=== PATIENT | female | born 1965 | race Caucasian/White ===

== ENCOUNTER 2017-03-25 13:00 | Inpatient (IN) | payer OTHER ==
[~2017-03-25] VITALS: Ht 167.6 cm; Wt 92.3 kg
[~2017-03-25 13:00] MED LIST: MECL-62 PO; OYST500T77 PO; VITA400D PO
[2017-03-28] MEDS ORDERED: METH5TAB4 PO (10:20)
[2017-04-04] MEDS ORDERED: ceFAZolin 2 GM PREMIX 50 ML IV SCH (06:45)
[2017-04-04] MEDS ORDERED: POVIDONE IODINE 5% (ANTISEPSIS KIT) 4 APPLICATIONS EACH NARE PRN (06:45)
[2017-04-04] MEDS ORDERED: LACTATED RINGER'S 1000 ML IV PRN (06:45)
[2017-04-04] MEDS ORDERED: METRONIDAZOLE 500 MG/100 ML ISONTONIC SOLN IV SCH (06:45)
[2017-04-04] MEDS ORDERED: METOPROLOL TARTRATE 25 MG TAB PO PRN (06:45)
[2017-04-04] MEDS ORDERED: INSULIN HUMAN REGULAR 1,000 UNITS/10 ML VIAL SQ PRN (06:45)
[2017-04-04] MEDS ORDERED: SODIUM CHLORID 0.9% 500 ML IV PRN (06:45)
[2017-04-04] MEDS ORDERED: CHLORHEXIDINE GLUCONATE 2 % 1 PACK (2 CLOTHS) TOPICAL PRN (06:45)
[2017-04-04] MEDS ORDERED: VITA1000 PO (06:59)
[2017-04-04] MEDS ORDERED: CALC500T37 PO (06:59)
[2017-04-04] MEDS ORDERED: tumeric (06:59)
[2017-04-04] MEDS ORDERED: GING500C2 (06:59)
--- NOTE | 2017-04-04 07:53 | PD.HP.UP ---
H&P Update Note The Pre-Admit History and Physical Examination regarding the above named patient was reviewed (including, but not limited to, vital signs, heart, lungs, co-morbid conditions), and upon re-examination it is noted that: the patient's condition has not significantly changed since the last examination. Selena St MD Apr 04, 2017 07:53
[2017-04-04] MEDS ORDERED: FAMOTIDINE 20 MG/2 ML VIAL ONE (08:02)
[2017-04-04] MEDS ORDERED: MIDAZOLAM HCL 2 MG/2 ML VIAL ONE (08:02)
[2017-04-04] MEDS ORDERED: ACETAMINOPHEN 1000 MG/100 ML 100 ML IV ONE (08:02)
--- NOTE | 2017-04-04 09:45 | PD.OP ---
Operative Report Date of Surgery: Apr 04, 2017 Preoperative Diagnosis: (1) Cancer of sigmoid colon Postoperative Diagnosis: (1) Cancer of sigmoid colon Procedure: Urologic procedures: Cystoscopy and placement of bilateral ureteral catheters Anesthesia: General Surgeon: Matt Donohue Mainframe Developer(s): None Operation and Findings: Urologic surgery indication for procedure: Consult intraoperatively to pass bilateral ureteral catheters to aid in visualization of this patient's ureters during her colorectal procedure. Urologic surgery procedures in detail: Concurrent with the colorectal surgeon, I proceeded with cystoscopy and placement of bilateral ureteral catheters as follows: Initially cystoscopic evaluation was performed utilizing the rigid cystoscope with a 22 Stateless sheath and the 30 lens. Both right and left ureteral orifices were in correct anatomic position effluxing clear yellow urine. There were no bladder mucosal lesions, calculi or diverticula formation. There were no areas suspicious for fistula formation. I next proceeded with passing a sensor 0.035 wire up the patient's left ureter until a small amount of resistance was met. I then passed a 6 Stateless open-ended catheter over the wire 25 cm in a cephalad direction. With the catheter in place the wire was withdrawn and reintroduced through secondary site via the cystoscope and in similar fashion the contralateral side was accomplished. With both catheters in place the cystoscope and wire were withdrawn and a 16 Stateless 10 cc Aguilar catheter was placed. Both ureteral catheters were next anchored to the Aguilar via a connector and all 3 catheters placed to gravity drainage. This completes urologic surgery portion of combined procedures on this patient. Matt Donohue MD Apr 04, 2017 09:45
[2017-04-04] MEDS ORDERED: SUGAMMADEX SODIUM 200 MG/2 ML VIAL IV PUSH ONE ×2 (09:51)
[2017-04-04] MEDS ORDERED: HYDROmorphone HCL PF 2 MG/ML VIAL ONE (10:15)
[2017-04-04] MEDS ORDERED: PROPOFOL 200 MG/20 ML AMP IV ONE (12:00)
[2017-04-04] MEDS ORDERED: VECURONIUM BROMIDE 10 MG VIAL IV ONE (12:00)
[2017-04-04] MEDS ORDERED: NORMOSOL R INJ 2,000 ML IV ONE (12:00)
[2017-04-04] MEDS ORDERED: ONDANSETRON HCL 4 MG/2 ML VIAL IV PUSH ONE (12:00)
[2017-04-04] MEDS ORDERED: Post-op Orders (for Pharmacy) MISC XX ONE (12:30)
[2017-04-04] MEDS ORDERED: ONDANSETRON HCL 4 MG/2 ML VIAL IV PRN (12:30)
[2017-04-04] MEDS ORDERED: POTASSIUM CHLOR 40 MEQ PREMIX 100 ML IV PRN (12:30)
[2017-04-04] MEDS ORDERED: ENALAPRILAT 2.5 MG/2 ML VIAL IV PRN (12:30)
[2017-04-04] MEDS ORDERED: NALOXONE HCL 0.4 MG/ML AMP IV PRN (12:30)
[2017-04-04] MEDS ORDERED: BENZOCAINE 6 MG/MENTHOL 10 MG LOZENGE BUCCAL PRN (12:30)
[2017-04-04] MEDS ORDERED: POTASSIUM CHLOR 20 MEQ PREMIX 100 ML IV PRN (12:30)
[2017-04-04] MEDS ORDERED: ACETAMINOPHEN 325 MG TAB PO PRN (12:30)
[2017-04-04] MEDS ORDERED: SODIUM CHLORIDE 0.9% FLUSH 5 ML FLUSH IVF PRN (12:30)
[2017-04-04] MEDS ORDERED: diphenhydrAMINE HCL 50 MG/ML VIAL IV PRN (12:30)
[2017-04-04] MEDS ORDERED: ENALAPRILAT 1.25 MG/ML VIAL IV PRN (12:30)
[2017-04-04] MEDS ORDERED: ACETAMINOPHEN/HYDROcodone 325 MG/5 MG TAB PO PRN ×2 (12:30)
[2017-04-04] MEDS: D5-NS + KCL 20 MEQ INJ 1,000 ML IV SCH ×2 (12:57→22:03)
[2017-04-04] MEDS ORDERED: DO NOT ADM ANY ANTICOAGULANT DRUGS PRN (12:57)
[2017-04-04 13:50] LABS: AUTOMATED NEUTROPHIL # 11.2 TH/MM3 (1.8-7.7); BASOPHIL % 0.2 % (0.0-2.0); EOSINOPHIL % 0.1 % (0.0-4.0); HEMATOCRIT 39.2 % (35.0-46.0); HEMO FLAGS DIFF FINAL; LYMPH % 5.4 % (9.0-44.0); LYMPHOCYTE # 0.7 TH/MM3 (1.0-4.8); MEAN CELL VOLUME 89.6 FL (80.0-100.0); MEAN CORPUSCULAR HEMOGLOBIN 29.2 PG (27.0-34.0); MEAN CORPUSCULAR HGB CONC 32.6 % (32.0-36.0); MONO % 1.5 % (0.0-8.0); NEUT % 92.8 % (16.0-70.0); PLATELET COUNT 250 TH/MM3 (150-450); RED BLOOD COUNT 4.37 MIL/MM3 (4.00-5.30); RED CELL DISTRIBUTION WIDTH 13.8 % (11.6-17.2); WHITE BLOOD COUNT 12.1 TH/MM3 (4.0-11.0)
[2017-04-04 14:10] LABS: BICARBONATE 25.4 MEQ/L (21.0-32.0); POTASSIUM 3.2 MEQ/L (3.5-5.1)
[2017-04-04] MEDS: MORPHINE SULFATE 30 MG/30 ML PCA IV SCH ×2 (14:14→22:02)
[2017-04-04] MEDS: metroNIDAZOLE 500 MG INJ 100 ML IV SCH (17:00)
[2017-04-04 18:49] VITALS: BP 120/64; PULSE 80; RESP 16; TEMP 98
[2017-04-04 19:00] VITALS: PULSE 85
[2017-04-04] MEDS: DEXT 5%-NACL 0.9% 1000 ML INJ 1,000 ML IV SCH (19:38)
[2017-04-04 20:00] VITALS: BP 120/66; PULSE 76; RESP 16; TEMP 99.4; O2SAT 95
[2017-04-04 20:26] VITALS: O2SAT 100; O2SAT 96
[2017-04-04] MEDS: SODIUM CHLORIDE 0.9% FLUSH 5 ML FLUSH IVF SCH (21:00)
[2017-04-04] MEDS: PCA - TOTAL MG MORPHINE DELIVERED PER SHIFT SCH (22:00)
[2017-04-04] MEDS: KETOROLAC TROMETHAMINE 30 MG/ML (IVP) VIAL IVP SCH (22:02)
[2017-04-04 23:00] VITALS: BP 126/68; PULSE 76; PULSE 79; RESP 16; TEMP 98.7; O2SAT 98
[2017-04-05] VITALS (19 sets, daily range): BP systolic 115–121; BP diastolic 63–75; PULSE 70–98; RESP 16–20; TEMP 98.2–99.7; O2SAT 97–99
[2017-04-05] MEDS: D5-NS + KCL 20 MEQ INJ 1,000 ML IV SCH ×3 (01:49→14:55)
[2017-04-05] MEDS: DEXT 5%-NACL 0.9% 1000 ML INJ 1,000 ML IV SCH (03:15)
[2017-04-05] MEDS: PCA - TOTAL MG MORPHINE DELIVERED PER SHIFT SCH ×4 (03:17→22:00)
[2017-04-05] MEDS: KETOROLAC TROMETHAMINE 30 MG/ML (IVP) VIAL IVP SCH ×4 (03:18→21:04)
[2017-04-05] MEDS: metroNIDAZOLE 500 MG INJ 100 ML IV SCH ×2 (03:22→08:35)
[2017-04-05 05:43] LABS: AUTOMATED NEUTROPHIL # 8.6 TH/MM3 (1.8-7.7); BASOPHIL % 0.3 % (0.0-2.0); HEMATOCRIT 37.3 % (35.0-46.0); HEMO FLAGS DIFF FINAL; LYMPH % 8.7 % (9.0-44.0); LYMPHOCYTE # 0.9 TH/MM3 (1.0-4.8); MEAN CELL VOLUME 91.2 FL (80.0-100.0); MEAN CORPUSCULAR HEMOGLOBIN 29.7 PG (27.0-34.0); MEAN CORPUSCULAR HGB CONC 32.6 % (32.0-36.0); MONO % 9.8 % (0.0-8.0); NEUT % 81.2 % (16.0-70.0); PLATELET COUNT 257 TH/MM3 (150-450); RED BLOOD COUNT 4.09 MIL/MM3 (4.00-5.30); RED CELL DISTRIBUTION WIDTH 13.8 % (11.6-17.2); WHITE BLOOD COUNT 10.5 TH/MM3 (4.0-11.0)
[2017-04-05 06:07] LABS: BICARBONATE 23.9 MEQ/L (21.0-32.0); POTASSIUM 3.9 MEQ/L (3.5-5.1)
[2017-04-05] MEDS: MORPHINE SULFATE 30 MG/30 ML PCA IV SCH (08:36)
[2017-04-05] MEDS: METHIMAZOLE 5 MG TAB PO SCH (08:39)
[2017-04-05] MEDS: PANTOPRAZOLE SODIUM 40 MG VIAL IVP SCH (08:40)
[2017-04-05] MEDS: SODIUM CHLORIDE 0.9% FLUSH 5 ML FLUSH IVF SCH ×2 (08:41→21:00)
[2017-04-05] MEDS: HEPARIN SODIUM - SQ 10,000 UNITS/ML VIAL SQ SCH (11:52)
--- NOTE | 2017-04-05 15:16 | HHI.PR ---
Subjective Remarks POD#1 s/p LAR Comfortable, no nausea Objective Vital Signs Date Time Temp Pulse Resp B/P (MAP) Pulse Ox O2 Delivery O2 Flow Rate FiO2 04/05/17 14:00 95 04/05/17 13:00 90 04/05/17 12:00 85 04/05/17 11:00 70 04/05/17 11:00 98.2 95 20 115/63 (80) 99 04/05/17 10:00 88 04/05/17 09:00 86 04/05/17 08:36 20 04/05/17 08:00 70 04/05/17 07:48 98.9 70 20 117/75 (89) 98 04/05/17 07:00 70 04/05/17 06:00 98.6 76 16 121/70 (87) 99 04/05/17 03:17 12 04/05/17 03:00 75 04/04/17 23:00 76 04/04/17 23:00 98.7 79 16 126/68 (87) 98 04/04/17 22:07 12 04/04/17 22:02 12 04/04/17 22:00 16 04/04/17 20:26 96 Nasal Cannula 2.00 04/04/17 20:00 99.4 76 16 120/66 (84) 95 04/04/17 19:00 85 04/04/17 18:49 98.0 80 16 120/64 (82) 04/04/17 15:45 98.0 84 20 129/69 (89) 100 Nasal Cannula 2 I/O 04/04/17 04/04/17 04/04/17 04/05/17 04/05/17 04/05/17 07:00 15:00 23:00 07:00 15:00 23:00 Intake Total 2400 ml 2240 ml Output Total 450 ml 425 ml Balance 1950 ml 1815 ml Intake Oral 240 ml IV Total 2000 ml Other 2400 ml Output Urine Total 400 ml 425 ml Estimated Blood Loss 50 ml Result Diagram: 04/05/17 0450 04/05/17 0450 Objective Remarks Abdomen soft, nondistended, tender Dressings c/d/i Assessment and Plan Assessment and Plan D/C tele D/C stent Decrease IVF Advance diet Selena St MD Apr 05, 2017 15:16
[2017-04-06] VITALS (7 sets, daily range): BP systolic 118–144; BP diastolic 59–82; PULSE 85–93; RESP 16–20; TEMP 97.8–100.4; O2SAT 94–100
[2017-04-06] MEDS: KETOROLAC TROMETHAMINE 30 MG/ML (IVP) VIAL IVP SCH ×4 (02:00→21:21)
[2017-04-06] MEDS: MORPHINE SULFATE 30 MG/30 ML PCA IV SCH (05:40)
[2017-04-06] MEDS: D5-NS + KCL 20 MEQ INJ 1,000 ML IV SCH (05:44)
[2017-04-06] MEDS: PCA - TOTAL MG MORPHINE DELIVERED PER SHIFT SCH (06:00)
[2017-04-06 08:00] LABS: AUTOMATED NEUTROPHIL # 5.9 TH/MM3 (1.8-7.7); BASOPHIL # 0.1 TH/MM3 (0-0.2); BASOPHIL % 0.7 % (0.0-2.0); EOSINOPHIL # 0.1 TH/MM3 (0-0.4); EOSINOPHIL % 1.5 % (0.0-4.0); HEMATOCRIT 31.5 % (35.0-46.0); HEMO FLAGS DIFF FINAL; LYMPH % 13.1 % (9.0-44.0); MEAN CELL VOLUME 91.6 FL (80.0-100.0); MEAN CORPUSCULAR HEMOGLOBIN 31.2 PG (27.0-34.0); MONO % 8.6 % (0.0-8.0); NEUT % 76.1 % (16.0-70.0); PLATELET COUNT 203 TH/MM3 (150-450); RED BLOOD COUNT 3.43 MIL/MM3 (4.00-5.30); RED CELL DISTRIBUTION WIDTH 13.9 % (11.6-17.2); WHITE BLOOD COUNT 7.8 TH/MM3 (4.0-11.0)
[2017-04-06] MEDS: METHIMAZOLE 5 MG TAB PO SCH (08:13)
[2017-04-06] MEDS: PANTOPRAZOLE SODIUM 40 MG VIAL IVP SCH (08:13)
[2017-04-06] MEDS: SODIUM CHLORIDE 0.9% FLUSH 5 ML FLUSH IVF SCH ×2 (08:14→21:00)
[2017-04-06 08:33] LABS: BICARBONATE 25.5 MEQ/L (21.0-32.0); POTASSIUM 3.5 MEQ/L (3.5-5.1)
--- NOTE | 2017-04-06 12:21 | HHI.PR ---
Subjective Remarks POD#2 s/p LAR Comfortable Objective Vital Signs Date Time Temp Pulse Resp B/P (MAP) Pulse Ox O2 Delivery O2 Flow Rate FiO2 04/06/17 09:59 96 Nasal Cannula 2.00 04/06/17 07:00 99.8 93 18 139/73 (95) 94 04/06/17 06:00 18 04/06/17 05:40 18 04/06/17 04:00 99.1 89 16 129/73 (91) 98 04/06/17 00:00 98.7 85 16 118/59 (78) 98 04/05/17 22:00 95 04/05/17 22:00 18 04/05/17 21:00 95 04/05/17 20:00 99.7 82 18 118/65 (82) 97 04/05/17 20:00 98 04/05/17 19:00 82 04/05/17 18:00 80 04/05/17 17:00 98 04/05/17 16:00 88 04/05/17 15:00 98.4 88 20 118/68 (85) 99 04/05/17 15:00 80 04/05/17 14:00 95 04/05/17 14:00 20 04/05/17 13:00 90 I/O 04/05/17 04/05/17 04/05/17 04/06/17 04/06/17 04/06/17 07:00 15:00 23:00 07:00 15:00 23:00 Intake Total 2240 ml 1980 ml 1140 ml Output Total 425 ml 700 ml 1250 ml Balance 1815 ml 1280 ml -110 ml Intake Oral 240 ml 580 ml 420 ml IV Total 2000 ml 1400 ml 720 ml Output Urine Total 425 ml 700 ml 1250 ml Result Diagram: 04/06/17 0708 04/06/17 0708 Objective Remarks Abdomen soft, nondistended, tender Wounds clean Assessment and Plan Assessment and Plan Decrease IVF Advance diet D/C LOSS PREVENTION DETECTIVE Transfer to N Selena [address] MD Apr 06, 2017 12:21
--- NOTE | 2017-04-06 12:42 | MP ---
cc: ALYSSA EDMONDS M.D. JOHANA BAI HARSH, V. M.D. DATE OF SURGERY: 04/04/2017. PREOPERATIVE DIAGNOSIS: Rectosigmoid colon cancer. POSTOPERATIVE DIAGNOSIS: Rectosigmoid colon cancer. OPERATIVE PROCEDURE PERFORMED: Robotic low anterior resection. SURGEON: Alyssa Edmonds M.D. HEADER SETUP OPERATOR: Rodger. ANESTHESIA: General per ET tube ESTIMATED BLOOD LOSS: 50 mL OPERATIVE INDICATIONS: The patient is a 51-year-old female who on recent colonoscopy was noted to have a cancer at the rectosigmoid junction. OPERATIVE FINDINGS: The liver was visibly normal as were the uterus and the ovaries. The patient had a small tumor at the rectosigmoid junction, but no other visible abnormalities noted within the bowel. DESCRIPTION OF THE PROCEDURE IN DETAIL: The patient was brought to the operating room and placed in the supine position. After induction of general anesthesia the patient was placed in Kevin stirrups and all bony prominences were carefully padded. Dr. Donohue then came in and performed cystoscopy with placement of bilateral ureteral catheters, please see his operative note for details. A site was then chosen for the camera, being located 2 cm above and to the right of the umbilicus. A 10/12 trocar was placed at this location, under direct vision using a laparoscope. CO2 insufflation was then undertaken and a brief abdominal survey was performed, with nothing noted that would preclude the operative approach. The remainder of the ports were then placed as follows: The #1 10/12 port was placed just inside the anterior superior iliac spine. The assist port, #5, was placed just under the right costal margin, equidistant between the #1 and the camera port. The #3 port,an 8 da Catracho, was placed on the umbilical line in the left anterior axillary line. After evaluating and finding that she had plenty of length of descending colon, the #2 port was placed in the left midclavicular line two fingerbreadths above the umbilicus. The patient was hydroplaned with head down and slightly to the right, and the small bowel was brought up and to the right. The patient was noted to have quite a bit of redundant descending and sigmoid colon. This was pulled up and the area of the tumor was fairly well visualized. The uterus and ovaries appeared to be normal. The liver was visualized to the extent possible and no significant abnormalities were noted. The sigmoid colon was retracted to the left and the peritoneum on the right was scored. Dissection continued in this plane posterior to the vessels until the left ureter was clearly identified and swept away from the vessels. The vessels were then dissected up to their takeoff from the aorta. These were dissected free. The artery and vein were dissected free circumferentially, doubly clamped proximally and distally, divided and ligated using Hem-o-lock clamps. Dissection then continued laterally to the level of the lateral sidewall and dissection then continued in the pelvis posteriorly down to the level of the distal rectum. Dissection then continued up and around the right side, freeing the rectum down to the level of the mid rectum on the lateral side. The rectosigmoid was then retracted to the right and the lateral peritoneal attachments of the sigmoid were then dissected free using electrocautery. This was continued up onto the distal descending colon and then dissection continued on the left side of the rectum, freeing down to the mid rectum as well. A sponge stick was then placed into the rectum, and a site was chosen for division of the rectum, just below the peritoneal reflection. The bowel was sized and I felt the 33 EEA stapler was appropriate. This was brought onto the field and placed through the anus and up to the rectal stump and came up nicely without difficulty. The peritoneal reflection was then divided using electrocautery and the rectal mesentery was divided using the harmonic scalpel. A white load of the [place] Endostapler was brought onto the field and placed across the bowel at this level. This was closed, held for 30 seconds, fired and removed. The 33 EEA stapler was again advanced through the rectal stump and through the anus and up to the rectal stump without difficulty. It lay in a nice orientation. There were a few small areas of fibrofatty tissue which were cleared off. The rest of bowel was then examined. It was felt that the we had plenty of length to come down nicely into the pelvis. Dissection beds were examined and there were some small areas of oozing that were controlled with electrocautery. The robot was then undocked. A 6 to 8 cm incision was made in the suprapubic area and,, using electrocautey, dissection was carried down to the fascia of the anterior abdominal wall which was split the length of the skin incision. The medial fibers of the rectus abdominis muscle were then divided using electrocautery, and the posterior fascia/peritoneum was then divided the length of the skin incision as well. A wound protector was placed, and the proximal stapled end of the bowel was then grasped and pulled up and out through the incision. A site was then chosen for division of the bowel, where it came down nicely to the pubic tubercle. The mesentery at this level was serially divided and ligated using #0 Vicryl ties, and a pursestring stapling device was placed across the bowel at this level. The distal bowel was occluded with Alan clamps and it was then amputated and taken to the back table where the tumor was easily visualized and we had a nice 8 cm distal margin. The anvil was then placed into the cut end of the bowel and the previously placed pursestring suture was then secured. However, on evaluation there were two fairly large diverticula that really did not quite come down nicely to make a good anastomosis so I did elect to dissect back an additional 1-2 cm. The mesentery was dissected back using electrocautery, and a reload of the pursestring stapling was placed across the bowel. The intervening bowel was then amputated and discarded. The anvil was placed again into the cut end of the bowel and the pursestring suture was secured. It lay in a better orientation. One member of the team then went performed the perineal portion of the procedure. After gentle digital dilatation of the anus, the stapler was advanced through the anus and up to the rectal stump. The spike was advanced just anterior to the staple line. The anvil was into the spike, being careful that the bowel was not twisted. The stapler was then closed, held for 30 seconds, fired, and removed, thus creating an enteroenterotomy. The resulting enterotomy was pink and healthy circumferentially and lay in a nice orientation without tension. Both anastomotic rings were complete. A small amount of warm normal saline was placed into the pelvis and air was insufflated to the extent possible, with digital occlusion of the proximal bowel. Gentle tension was noted on the anastomosis with no sign of any leakage noted. All dissection beds were again examined with no significant bleeding. A small amount or [place] however was dusted into the pelvis. The posterior fascia at the suprapubic incision was closed in a running fashion using #1 PDS and the anterior fascia of the suprapubic incision was closed in a running fashion using #1 PDS. An OpSite was placed over the wound and CO2 insufflation was again resumed. There was no sign of any significant bleeding. The 10/12 trocar sites at the umbilicus and the right lower quadrant were then closed using the crossbow suture device and 0 Vicryl suture, but not secured. The air was desufflated to the extent possible. These sutures were then secured. All wounds were copiously irrigated with warm normal saline. The skin at the suprapubic incision was closed in a running fashion using 3-0 Vicryl and the skin of the trocar sites was closed in an interrupted subcuticular fashion using 3-0 Vicryl. The right ureteral catheter was then removed. All sponge, needle and instrument counts were correct and the patient was returned to the post anesthesia care in stable condition. MD PATRICK Vázquez/DANNY /12:30 PM /12:18 PM MTDJerrica
[2017-04-06] MEDS: HEPARIN SODIUM - SQ 10,000 UNITS/ML VIAL SQ SCH ×2 (12:55)
[2017-04-07] VITALS: BP 144/78; PULSE 88; RESP 20; TEMP 99.6; O2SAT 100
[2017-04-07] MEDS: HEPARIN SODIUM - SQ 10,000 UNITS/ML VIAL SQ SCH ×2 (00:35→11:27)
[2017-04-07 04:00] VITALS: BP 137/75; PULSE 68; RESP 20; TEMP 98.7; O2SAT 98
[2017-04-07] MEDS: KETOROLAC TROMETHAMINE 30 MG/ML (IVP) VIAL IVP SCH ×2 (04:58→08:56)
[2017-04-07 07:33] VITALS: BP 127/77; PULSE 73; RESP 18; TEMP 97.8; O2SAT 96
[2017-04-07] MEDS: D5-NS + KCL 20 MEQ INJ 1,000 ML IV SCH (08:55)
[2017-04-07] MEDS: METHIMAZOLE 5 MG TAB PO SCH (08:55)
[2017-04-07] MEDS: SODIUM CHLORIDE 0.9% FLUSH 5 ML FLUSH IVF SCH (08:56)
[2017-04-07] MEDS: PANTOPRAZOLE SODIUM 40 MG VIAL IVP SCH (08:57)
[2017-04-07 09:07] LABS: AUTOMATED NEUTROPHIL # 3.7 TH/MM3 (1.8-7.7); BASOPHIL # 0.1 TH/MM3 (0-0.2); BASOPHIL % 1.2 % (0.0-2.0); EOSINOPHIL # 0.2 TH/MM3 (0-0.4); EOSINOPHIL % 3.8 % (0.0-4.0); HEMATOCRIT 31.2 % (35.0-46.0); HEMO FLAGS DIFF FINAL; LYMPH % 24.7 % (9.0-44.0); LYMPHOCYTE # 1.5 TH/MM3 (1.0-4.8); MEAN CELL VOLUME 90.3 FL (80.0-100.0); MEAN CORPUSCULAR HEMOGLOBIN 31.1 PG (27.0-34.0); MEAN CORPUSCULAR HGB CONC 34.4 % (32.0-36.0); MONO % 9.2 % (0.0-8.0); NEUT % 61.1 % (16.0-70.0); PLATELET COUNT 195 TH/MM3 (150-450); RED BLOOD COUNT 3.45 MIL/MM3 (4.00-5.30); RED CELL DISTRIBUTION WIDTH 13.7 % (11.6-17.2)
[2017-04-07 09:36] LABS: POTASSIUM 3.1 MEQ/L (3.5-5.1)
[2017-04-07 11:00] VITALS: BP 126/68; PULSE 60; RESP 20; TEMP 98.8; O2SAT 98
--- NOTE | 2017-04-07 12:49 | HHI.PR ---
Subjective Remarks POD#3 s/p LAR Comfortable, ready to go home Objective Vital Signs Date Time Temp Pulse Resp B/P (MAP) Pulse Ox O2 Delivery O2 Flow Rate FiO2 04/07/17 07:33 97.8 73 18 127/77 (94) 96 04/07/17 04:00 98.7 68 20 137/75 (95) 98 04/07/17 00:00 99.6 88 20 144/78 (100) 100 04/06/17 20:00 100.4 86 20 144/82 (102) 100 04/06/17 15:00 97.8 87 18 124/68 (86) 97 04/06/17 14:38 18 04/06/17 14:38 18 I/O 04/06/17 04/06/17 04/06/17 04/07/17 04/07/17 04/07/17 06:59 14:59 22:59 06:59 14:59 22:59 Intake Total 1140 ml 1086 ml 240 ml Output Total 1250 ml 1700 ml 1200 ml Balance -110 ml -614 ml -960 ml Intake Oral 420 ml 240 ml IV Total 720 ml 1086 ml Output Urine Total 1250 ml 1700 ml 1200 ml Result Diagram: 04/07/17 0757 04/07/17 0757 Objective Remarks Abdomen soft, nondistended, tender Wounds clean Assessment and Plan Assessment and Plan Home today Followup [address] MD Apr 07, 2017 12:49
[2017-04-07] MEDS ORDERED: HYDR-3516 PO (12:51)
--- NOTE | 2017-04-29 22:42 | MD ---
cc: SELENA ST M.D. ADMISSION DATE: 04/04/2017 DISCHARGE DATE: 04/07/2017 ADMISSION DIAGNOSIS Rectosigmoid colon cancer. DISCHARGE DIAGNOSIS Rectosigmoid colon cancer. PROCEDURE 1. Cystoscopy with placement of bilateral ureteral catheters. 2. Robotic low anterior resection. HOSPITAL COURSE The patient is a 51-year-old female who on recent colonoscopy was noted to have a cancer of the rectosigmoid junction. She was admitted to the hospital on April 04, 2017, after an outpatient bowel prep. She was taken to the operating where she underwent the above-named procedures. Postoperatively, she did well with rapid return of bowel and bladder function. At the time of discharge final pathology was not available. Selena St MD KW/GABE /5:27 PM /10:31 PM NICA
== END 2017-04-07 15:00 | disposition home or self-care (01) | DRG 331 ==
LOC: HSDI 04-04 06:19 → EDSTATUS 04-04 08:30 → HCIS 04-04 15:40
PROVIDERS: ADMIT Colon & Rectal Surgery; ATTEND Colon & Rectal Surgery
PROC: 8E0W4CZ Robotic Assisted Procedure of Trunk Region, Percutaneous Endoscopic Approach (ICD-10-PCS; 2017-04-04)
PROC: 0T9880Z Drainage of Bilateral Ureters with Drainage Device, Via Natural or Artificial Opening Endoscopic (ICD-10-PCS; 2017-04-04)
PROC: 0DTN0ZZ Resection of Sigmoid Colon, Open Approach (ICD-10-PCS; principal; 2017-04-04 08:38)
PROC: 0DBP4ZZ Excision of Rectum, Percutaneous Endoscopic Approach (ICD-10-PCS; 2017-04-04 08:38)
DX: C19 Malignant neoplasm of rectosigmoid junction (principal); E05.90 Thyrotoxicosis, unspecified without thyrotoxic crisis or storm; Z87.891 Personal history of nicotine dependence; Z53.1 Procedure and treatment not carried out because of patient's decision for reasons of belief and group pressure
CPT/HCPCS: 80048; 85025; 88305; 88309; 94150; C1769; C9113; J0131; J0690; J1170; J1644; J1885; J2250; J2270; J2405; J3010; J3480; J7042; J7120

== ENCOUNTER → 2017-03-28 | Outpatient (CLI) | payer OTHER ==
[~2017-03-28] MED LIST changes: +CALC500T37 PO; +GING500C2; +HYDR-3516 PO; +METH5TAB4 PO; +VITA1000 PO; +tumeric
[2017-03-28 10:26] LABS: AUTOMATED NEUTROPHIL # 3.1 TH/MM3 (1.8-7.7); BASOPHIL # 0.1 TH/MM3 (0-0.2); EOSINOPHIL # 0.2 TH/MM3 (0-0.4); HEMATOCRIT 39.4 % (35.0-46.0); HEMO FLAGS DIFF FINAL; LYMPH % 26.3 % (9.0-44.0); LYMPHOCYTE # 1.4 TH/MM3 (1.0-4.8); MEAN CELL VOLUME 90.8 FL (80.0-100.0); MEAN CORPUSCULAR HEMOGLOBIN 30.4 PG (27.0-34.0); MEAN CORPUSCULAR HGB CONC 33.5 % (32.0-36.0); MONO % 9.3 % (0.0-8.0); NEUT % 58.4 % (16.0-70.0); PLATELET COUNT 236 TH/MM3 (150-450); RED BLOOD COUNT 4.33 MIL/MM3 (4.00-5.30); RED CELL DISTRIBUTION WIDTH 13.9 % (11.6-17.2); WHITE BLOOD COUNT 5.3 TH/MM3 (4.0-11.0)
[2017-03-28 10:37] LABS: APTT (PATIENT) 25.9 SEC (24.3-30.1); INTERNATIONAL NORMALIZED RATIO 0.9 RATIO
[2017-03-28 11:09] LABS: ALT (GPT) 20 U/L (10-53); ANION GAP 7 MEQ/L (5-15); AST (GOT) 11 U/L (15-37); BICARBONATE 27.7 MEQ/L (21.0-32.0); BLOOD UREA NITROGEN 11 MG/DL (7-18); CHLORIDE 107 MEQ/L (98-107); GLOMERULAR FILTRATION RATE 77 ML/MIN (>89); GLUCOSE,FASTING 86 MG/DL (74-99); POTASSIUM 4.1 MEQ/L (3.5-5.1); SODIUM (NA) 142 MEQ/L (136-145)
[2017-03-28 11:11] LABS: ALKALINE PHOSPHATASE 104 U/L (45-117); TOTAL BILIRUBIN ADULT 0.4 MG/DL (0.2-1.0)
[2017-03-28 13:36] LABS: BLOOD, URINE NEG (NEG); COMMENT (UR) CULT NOT INDICATED; CULTURE IF INDICATED CULT NOT INDICATED; GLUCOSE,URINE NEG (NEG); KETONE, URINE NEG (NEG); MUCUS URINE FEW /lpf (OCC); NITRITE,URINE NEG (NEG); SQUAMOUS EPITHELIAL CELL URINE 1 /hpf (0-5); URINE COLOR YELLOW (YELLW/STRAW)
--- NOTE | 2017-04-01 13:16 | EKG ---
Date Performed: 03/28/2017 Time Performed: 10:48:14 PTAGE: 51 years EKG: Sinus rhythm POSSIBLE RIGHT VENTRICULAR CONDUCTION DELAY BORDERLINE ECG Compared to prior tracing no significant change DOCTOR: Marcella Dominguez Interpretating Date/Time 04/01/2017 13:14:56
== END ==
LOC: CPRE 09:40
PROVIDERS: ATTEND Colon & Rectal Surgery
DX: Z01.810 Encounter for preprocedural cardiovascular examination (principal); Z01.812 Encounter for preprocedural laboratory examination; C18.7 Malignant neoplasm of sigmoid colon; R94.31 Abnormal electrocardiogram [ECG] [EKG]
CPT/HCPCS: 36415; 80053; 81001; 82378; 85025; 85610; 85730; 93005